=== PATIENT | male | born 1980 | race Caucasian/White ===

== ENCOUNTER 2019-09-15 23:37 | Emergency (ER) | payer SELFPAY ==
[~2019-09-15] VITALS: Ht 167.6 cm; Wt 62.2 kg
[2019-09-15 23:40] VITALS: BP 144/97
[2019-09-16] MEDS ORDERED: ketorolac tromethamine 15mg/ml inj. IM ONE (00:40)
[2019-09-16] MEDS ORDERED: orphenadrine citrate 60mg/2ml inj. IM ONE (00:40)
[2019-09-16] MEDS ORDERED: METH-360 PO (00:41)
[2019-09-16] MEDS ORDERED: IBUP-1985 PO (00:41)
== END 2019-09-16 01:01 | disposition home or self-care (01) ==
LOC: ER 23:38
DX: M54.41 Lumbago with sciatica, right side (principal); F17.200 Nicotine dependence, unspecified, uncomplicated; Z90.49 Acquired absence of other specified parts of digestive tract; Z88.0 Allergy status to penicillin; Z79.899 Other long term (current) drug therapy
CPT/HCPCS: 96372; 99284; J1885; J2360